=== PATIENT | female | born 1945 | race Caucasian/White ===

== ENCOUNTER → 2017-09-12 | Outpatient (CLI) | payer MEDICARE ==
[~2017-09-12] MED LIST: Blood pressure; CELEBREX200 MG PO; CIPRO 500MG TA500 MG PO; ENALAPRIL20 MG PO; EPA FISH OIL1000 MG PO; FLAGYL500 MG PO; HCTZ 25MG TAB25 MG PO; HCTZ 25MG25 MG PO; LOPRESSOR100 MG PO; LORTAB 5/500 501 TAB PO; MELATONIN3 M1 PO; MULTIPLE VITAMI1 TAB PO; NEXIUM20 MG PO; PRILOSEC 20MG20 MG PO; RHINOCORT0.032 MG/2 NS; TYLENOL 325MG325 MG PO; VERAPAMIL120 MG PO; XANAX 0.5MG0.5 MG PO; ZOFRAN 4MG T4 MG/TAB PO; ZOLPIDEM TART10 MG PO
== END ==
LOC: MC.RAD 08:32
DX: Z12.31 Encounter for screening mammogram for malignant neoplasm of breast (principal)

== ENCOUNTER → 2017-11-24 | Outpatient (CLI) | payer MEDICARE | LOC: COL.LAB 08:51 | DX: Z01.812 Encounter for preprocedural laboratory examination (principal) ==

== ENCOUNTER → 2018-08-03 | Outpatient (CLI) | payer MEDICARE | LOC: COL.RAD 14:04 | DX: S46.012A Strain of muscle(s) and tendon(s) of the rotator cuff of left shoulder, initial encounter (principal); S43.492A Other sprain of left shoulder joint, initial encounter; M24.812 Other specific joint derangements of left shoulder, not elsewhere classified; R79.89 Other specified abnormal findings of blood chemistry ==

== ENCOUNTER 2019-02-27 13:55 | Outpatient (RCR) | payer SELFPAY | END 2019-04-07 | disposition home or self-care (01) | LOC: COL.CR | DX: Z02.89 Encounter for other administrative examinations (principal) ==

== ENCOUNTER → 2019-03-05 | Outpatient (CLI) | payer OTHER | LOC: COL.RAD 10:30 | DX: G47.00 Insomnia, unspecified (principal); R68.82 Decreased libido; R53.82 Chronic fatigue, unspecified; E55.9 Vitamin D deficiency, unspecified; Z79.890 Hormone replacement therapy ==

== ENCOUNTER 2019-12-05 10:51 | Inpatient (IN) | payer MEDICARE ==
[~2019-12-05] VITALS: Wt 93.3 kg
[~2019-12-05 10:51] MED LIST changes: +MULTIPLE VITAMI1 CAP PO; -MULTIPLE VITAMI1 TAB PO
[2019-12-05 11:27] LABS: BASO # 0.1 (0.0-0.2); BASO % 0.7 % (0.0-2.0); EOS # 0.2 (0.0-0.7); EOS % 3.2 % (0-4.0); GRAN # 4.7 (1.4-6.5); GRAN % 62.8 % (42.2-75.2); HEMATOCRIT 41.7 % (37.0-47.0); LYMPH # 1.6 (1.2-3.4); LYMPH % 21.3 % (20.0-51.0); MEAN CELL VOLUME 99 fl (80.0-100.0); MEAN CORPUSCULAR HEMOGLOBIN 33 pg (27.0-31.0); MEAN CORPUSCULAR HGB CONC 34 g/dl (33.0-37.0); MEAN PLATELET VOLUME 10.1 fl (7.4-10.4); MONO # 0.9 (0.1-0.6); MONO % 11.6 % (1.7-9.3); PLATELET COUNT 193 K/mm3 (130-400); REDCELL DISTRIBUTION WIDTH-CV 12.4 % (11.5-14.5)
[2019-12-05] MEDS ORDERED: COZAAR100 MG PO (11:29)
[2019-12-05] MEDS ORDERED: LEXAPRO 10MG10 MG PO (11:30)
[2019-12-05 11:31] LABS: INR 0.9 (0.8-3.0); PROTHROMBIN TIME 10.5 SECONDS (9.7-12.8)
[2019-12-05] MEDS ORDERED: PROMETRIUM100 MG PO (11:31)
[2019-12-05 11:39] LABS: ALANINE AMINOTRANSFERASE 16 U/L (9-52); ALBUMIN 4.7 gm/dL (3.5-5.0); ALKALINE PHOSPHATASE 74 U/L (50-136); ANION GAP 11 mmol/L (7-16); AST,SGOT 26 U/L (15-37); BILIRUBIN,TOTAL 0.8 mg/dL (0.0-1.0); BLOOD UREA NITROGEN 25 mg/dL (7-17); CALCIUM 9.9 mg/dL (8.4-10.2); CARBON DIOXIDE 25 mmol/L (22-30); CHLORIDE 100 mmol/L (98-107); CREATININE, serum 0.94 (0.52-1.25); GLUCOSE 94 mg/dL (74-106); LIPASE 125 U/L (23-300); SODIUM 136 mmol/L (137-145); TOTAL PROTEIN 7.8 gm/dL (6.4-8.2)
[2019-12-05 11:51] LABS: TROPONIN-I < 0.012 ng/mL (0.000-0.035)
[2019-12-05] MEDS ORDERED: ASPIRIN 81M81 MG/TA2 PO (14:15)
[2019-12-05] MEDS ORDERED: ESTROGEN TP (14:24)
[2019-12-05 16:31] VITALS: BP 134/58; PULSE 73; TEMP 97.6
--- NOTE | 2019-12-05 16:47 | NUR ---
Dr. Donahue was consulted for patient chested pain and elevated Troponin
--- NOTE | 2019-12-05 19:26 | NUR ---
Patient was admitted from the ER. Patient is alert and oriented. Heart rhythm sound is normal at this time. Breath sound is clear. Patient denies any pain at this time. pedal and radial pulse is at 2+. No edema noted at this time. elevated Troponin 0.[address] KAN AND Dr. Edwards was informed. Dr Edwards order for Troponin but Dr KAN said it should be rechecked tomorrow and not tonight. Patient was started on Heparin drip of 10mL/hr. Patient was educated on the medication. HepXa drawn for 1200am 12/06. Patient home meds was taken home by . Patient is getting a heart cath tomorrow.
[2019-12-05 20:00] VITALS: BP 132/42; PULSE 64; TEMP 97.8
--- NOTE | 2019-12-05 21:13 | NUR ---
PT IN BED JOKING WITH ME AND OTHER NURSE PRESENT. PT SEEMED PLEASANT AND ORIENTED TO WHAT WAS HAPPENING. PT AWARE OF PROCEDURE IN THE MORNING. PT HAD TABLE AT BEDSIDE AND CALL LIGHT WITHIN REACH. PT SAYS PAIN 5/10 IN BACK. PT DENIES ANY OTHER NEEDS AT THIS TIME. AWARE NPO AFTER MIDNIGHT.
[2019-12-06] VITALS (291 sets, daily range): BP systolic 109–158; BP diastolic 39–79; PULSE 58–76; TEMP 97.5–98.7; O2SAT 60–100
--- NOTE | 2019-12-06 05:07 | NUR ---
pt awake during times i would come do vitals. stating she cannot get much sleep. states back pain is low but comes and goes. npo at midnight for heart cath. hepxa within therapeutic level, recheck at 0600. heparin drip still at 10mls/hr. bringing back meds to have pharmacy go over and take. bed in low position, call light and table at bedside. no other needs at this time.
[2019-12-06 06:53] LABS: BASO % 0.5 % (0.0-2.0); EOS # 0.2 (0.0-0.7); EOS % 3.5 % (0-4.0); GRAN # 3.6 (1.4-6.5); GRAN % 63.3 % (42.2-75.2); HEMOGLOBIN 12.9 g/dl (12.5-16.0); LYMPH # 1.2 (1.2-3.4); LYMPH % 21.4 % (20.0-51.0); MEAN CELL VOLUME 102 fl (80.0-100.0); MEAN CORPUSCULAR HEMOGLOBIN 33 pg (27.0-31.0); MEAN CORPUSCULAR HGB CONC 32 g/dl (33.0-37.0); MEAN PLATELET VOLUME 10.3 fl (7.4-10.4); MONO # 0.6 (0.1-0.6); PLATELET COUNT 159 K/mm3 (130-400); RED BLOOD COUNT 3.91 M/mm3 (4.10-5.30); REDCELL DISTRIBUTION WIDTH-CV 12.6 % (11.5-14.5)
[2019-12-06 07:08] LABS: CALCIUM 9.6 mg/dL (8.4-10.2); CHOLESTEROL RISK RATIO 3.7; CREATININE, serum 0.82 (0.52-1.25); POTASSIUM 3.7 mmol/L (3.4-5.0)
[2019-12-06 07:21] LABS: TROPONIN-I 0.072 ng/mL (0.000-0.035)
--- NOTE | 2019-12-06 07:26 | NUR ---
HEPARIN XA OBTAINED THIS AM @ 0600 RESULTED IN GOAL RANGE. NO CHANGE TO INFUSION RATE. PER PROTOCOL WILL RECHECK HEPARIN XA 12/07/19 IN AM.
--- NOTE | 2019-12-06 11:55 | NUR ---
Duty Engineer RNs x 2. On [facility] preparing patient for Heart Cath. Patient down to bilingual trainer accompanied by Duty Engineer nurses. New IV site obtained in Right lower forearm without complications. called by patient en route to hospital at this time.
--- NOTE | 2019-12-06 12:12 | NUR ---
SEE MERGE FOR MEDICATION ADMINISTRATION AND INRA/POST PROCEDURE SEDATION ASSESSMENTS.
--- NOTE | 2019-12-06 14:30 | NUR ---
PATIENT ARRIVES TO ROOM FROM WOODWORKING SHOP LABORER. SHEATH IN PLACE IN RIGHT GROIN. TR BAND IN PLACE TO RIGHT WRIST. BOTH SITES ASSESSED. VS WNL. WILL CONTINUE TO MONITOR.
--- NOTE | 2019-12-06 15:55 | NUR ---
GERIATRIC SOCIAL WORK PROFESSOR IN ROOM. SHEATH PULLED AT 1535. THEY DRESS THE SITE. GROIN ASSESSED BY MYSELF AT THIS TIME.
--- NOTE | 2019-12-06 16:05 | NUR ---
GROIN SITE ASSESSED. HEMATOMA NOTED. PRESSURE HELD. SATELLITE DISH INSTALLER CALLED TO COME HELP MANAGE GROIN.
--- NOTE | 2019-12-06 16:30 | NUR ---
HEMATOMA NOTED TO RIGHT GROIN. GREENS KEEPER CALLED TO COME BACK AND HELP MANAGE GROIN. PATIENT C/O NAUSEA AND HYPOTENSION SEEN ON MONITOR. FLUIDS WIDE OPEN. DR. HARRINGTON CALLED FOR ORDERS. ORDERS ARE TO GIVE FLUID BOLUS FROM FLUIDS THAT ARE CURRENTLY HANGING, GIVE ZOFRAN FOR NAUSEA AND MONITOR. NO NEW BRADYCARDIA SEEN ON MONITOR.
--- NOTE | 2019-12-06 16:45 | NUR ---
PATIENT FEELING MUCH BETTER. BP RETURNS BACK TO NORMAL FOR THIS PATIENT. NAUSEA SUBSIDED. RIGHT GROIN STABLE. PULSES PRESENT. DR. HARRINGTON HAS BEEN TO ROOM TO SEE AND EXAMINE PATIENT. NO NEW ORDERS RECEIVED AT THIS TIME.
--- NOTE | 2019-12-06 19:05 | NUR ---
Received report from SUZIE Flores. Patient resting quietly in bed at this time. TR band completely deflated but remains in place over RR access site. Scant drainage noted. RF site is clean, dry, and intact, however, bruising is evident underneith dressing. Site remains soft and without hematoma formation. Pedal and radial pulses palpable. Will continue to monitor.
--- NOTE | 2019-12-06 19:06 | NUR ---
REPORT GIVEN TO SUZIE WHIPPLE. PATIENT LYING IN BED AT THIS TIME. STILL ON FLAT TIME UNTIL 2029.
--- NOTE | 2019-12-06 21:08 | NUR ---
Patient's flat time up at 2029. RR site clean, soft, and without hematoma formation at this time; TR band removed. Patient's RF site bruised, but is soft and without hematoma formation. Dressing is clean, dry, and intact. Patient progressed to sitting up in bed to sitting on edge of bed prior to ambulation. Patient's jiménez removed at 2044 per her request. Patient ambulated to sink to brush teeth and freshen up. At this time, approximately 2049, a ping-pong ball-sized hematoma was noted at patient's RR site. Pressure applied and hematoma massaged until soft. Pulses remained palpable. TR band and splint reapplied with 10mL of air. Reinforced teaching that patient not use the right arm to sit up in bed. Will continue to monitor.
--- NOTE | 2019-12-06 21:09 | NUR ---
Hematoma at RR site resolved. TR band remains in place with 10mL at this time.
[2019-12-07] VITALS: BP 143/61; PULSE 64; TEMP 97.9; O2SAT 83
[2019-12-07 00:01] VITALS: O2SAT 77
[2019-12-07 01:12] VITALS: O2SAT 57
[2019-12-07 04:00] VITALS: BP 136/61; PULSE 68; TEMP 97.8
--- NOTE | 2019-12-07 04:15 | NUR ---
Staff at bedside at approximately 0330 for routine cath check. Patient resting quietly in bed, vitals within normal limits. RR and RF sites remain soft and without hematoma formation. No drainage noted at RF site, however, scant drainage noted on patient's RR site. Bruising noted at both sites. Patient denies further needs at this time. At 0350, telemetry filing or registry clerk notified staff that patient's leads were off. Upon entering patient's room, patient was found to be ambulating in room. She had removed all monitoring equipment, including splint and TR band, and had changed her gown. When staff attempted to reapply telemetry patches and leads, patient quickly became agitated, stating, "I'm leaving today, I don't know why all this is necessary." Patient informed leads were necessary to monitor changes in her heart rate/rhythm following a cardiac procedure. Patient became increasingly agitated, continuing to state monitoring was not needed since she would be leaving this morning. Staff offered a portable telemetry box, in addition to removing BP cuff and oximeter with the exception of routine vital checks; this placated the patient. Patient was also offered a recliner and a cup of coffee, which she agreed to. Patient appears calmer and denies any discomfort or further needs.
--- NOTE | 2019-12-07 07:42 | NUR ---
Report given to SUZIE Song.
[2019-12-07 08:00] VITALS: BP 139/58; PULSE 80; TEMP 98
--- NOTE | 2019-12-07 08:00 | NUR ---
Shift assessment complete at this time. Plan of care reviewed at bedside with patient. Additional time taken to address any other needs or concerns. Vitals stable at this time. Pt denies pain or any other discomforts. R radial et R femoral cath sites with bruising, no drainage or hematoma. Bed in low position, call light within reach, will continue to monitor.
--- NOTE | 2019-12-07 10:16 | NUR ---
Patients was present. Visited, and provided spiritual care.
[2019-12-07] MEDS ORDERED: PLAVIX 75MG TAB75 MG PO (11:15)
[2019-12-07] MEDS ORDERED: IMDUR 30MG30 MG/TAB PO (11:16)
[2019-12-07] MEDS ORDERED: LOPRESSOR 225 MG/TAB PO (11:16)
[2019-12-07] MEDS ORDERED: NITROSTAT0.4 MG/TAB SL (11:16)
[2019-12-07] MEDS ORDERED: ASPIRIN 81M81 MG/TA2 PO (11:17)
[2019-12-07] MEDS ORDERED: LIPITOR 80MG80 MG PO (11:28)
--- NOTE | 2019-12-07 11:55 | NUR ---
Pt discharged to home by private vehicle at this time. Discharge education provided to patient et spuse and additional time was taken to address all questions and concerns.
== END 2019-12-07 11:55 | disposition home or self-care (01) | DRG 247 ==
LOC: COL.ER 10:51 → MEDICAL 12:11 → ICU 12-06 13:34
PROVIDERS: Emergency Medicine; Physician Assistant; ADMIT Student in an Organized Health Care Education/Training Program
PROC: 027034Z Dilation of Coronary Artery, One Artery with Drug-eluting Intraluminal Device, Percutaneous Approach (ICD-10-PCS; principal; 2019-12-06)
PROC: 02703ZZ Dilation of Coronary Artery, One Artery, Percutaneous Approach (ICD-10-PCS; 2019-12-06)
PROC: 4A023N7 Measurement of Cardiac Sampling and Pressure, Left Heart, Percutaneous Approach (ICD-10-PCS; 2019-12-06)
PROC: B2111ZZ Fluoroscopy of Multiple Coronary Arteries using Low Osmolar Contrast (ICD-10-PCS; 2019-12-06)
PROC: B2151ZZ Fluoroscopy of Left Heart using Low Osmolar Contrast (ICD-10-PCS; 2019-12-06)
DX: I21.4 Non-ST elevation (NSTEMI) myocardial infarction (principal); I20.0 Unstable angina; I48.0 Paroxysmal atrial fibrillation; F41.9 Anxiety disorder, unspecified; K21.9 Gastro-esophageal reflux disease without esophagitis; G47.00 Insomnia, unspecified; I10 Essential (primary) hypertension; Z96.653 Presence of artificial knee joint, bilateral; Z96.642 Presence of left artificial hip joint; Z87.891 Personal history of nicotine dependence; Z95.5 Presence of coronary angioplasty implant and graft; Z88.1 Allergy status to other antibiotic agents
CPT/HCPCS: 99223-AI; 99233-AI; 99239; C1725; C1769; C1874; C1887; C1894; C9600; G0378; J1644; J2250; J2405; J3010; J7030

== ENCOUNTER 2020-02-05 09:26 | Inpatient (IN) | payer MEDICARE ==
[~2020-02-05] VITALS: Ht 172.7 cm; Wt 93.8 kg
[~2020-02-05 09:26] MED LIST changes: +ASPIRIN 81M81 MG/TA2 PO; +COZAAR100 MG PO; +ESTROGEN TP; +IMDUR 30MG30 MG/TAB PO; +LEXAPRO 10MG10 MG PO; +LIPITOR 80MG80 MG PO; +LOPRESSOR 225 MG/TAB PO; +NITROSTAT0.4 MG/TAB SL; +PLAVIX 75MG TAB75 MG PO; +PROMETRIUM100 MG PO
[2020-02-05 09:58] LABS: INR 0.9 (0.8-3.0); PROTHROMBIN TIME 10.9 SECONDS (9.7-12.8)
[2020-02-05 10:01] LABS: BASO % 0.6 % (0.0-2.0); EOS # 0.3 (0.0-0.7); EOS % 3.9 % (0-4.0); GRAN # 4.3 (1.4-6.5); GRAN % 64.1 % (42.2-75.2); HEMATOCRIT 39.5 % (37.0-47.0); HEMOGLOBIN 13.3 g/dl (12.5-16.0); LYMPH # 1.2 (1.2-3.4); LYMPH % 18.6 % (20.0-51.0); MEAN CELL VOLUME 99 fl (80.0-100.0); MEAN CORPUSCULAR HEMOGLOBIN 33 pg (27.0-31.0); MEAN CORPUSCULAR HGB CONC 34 g/dl (33.0-37.0); MEAN PLATELET VOLUME 9.9 fl (7.4-10.4); MONO # 0.8 (0.1-0.6); MONO % 12.3 % (1.7-9.3); PLATELET COUNT 180 K/mm3 (130-400); REDCELL DISTRIBUTION WIDTH-CV 12.4 % (11.5-14.5)
[2020-02-05] MEDS ORDERED: TYLENOL 500MG500 MG PO (10:04)
[2020-02-05 10:05] LABS: ALBUMIN 4.5 gm/dL (3.5-5.0); BILIRUBIN,TOTAL 0.7 mg/dL (0.0-1.0); CALCIUM 9.5 mg/dL (8.4-10.2); CREATININE, serum 0.96 (0.52-1.25); POTASSIUM 3.6 mmol/L (3.4-5.0); TOTAL PROTEIN 7.4 gm/dL (6.4-8.2)
[2020-02-05 10:21] LABS: TROPONIN-I 0.036 ng/mL (0.000-0.035)
--- NOTE | 2020-02-05 12:30 | NUR ---
PT TO ROOM IMCU 13. PT RESTING IN BED. HEPARIN DRIP @ 10 MLS/HR PER ORDERS. NS @ 125MLS HR. TELE PLACED. VSS, PT DENIES PAIN AT THIS TIME. DR. PA IN TO SEE PATIENT. REPORT FROM MARIA D LARSEN ED.
[2020-02-05 12:47] VITALS: BP 130/80; PULSE 70; TEMP 97.7
--- NOTE | 2020-02-05 17:25 | NUR ---
notified Dr. Spain of Troponin level. no new orders.
--- NOTE | 2020-02-05 17:30 | NUR ---
HEPXA LEVEL 0.56 DECREASED 1ML/HR PER PROTOCOL NEXT DRAW 2330.
[2020-02-05 18:00] VITALS: BP 146/65; PULSE 58; TEMP 97.8
--- NOTE | 2020-02-05 19:12 | NUR ---
report to Soha LARSEN.
[2020-02-06] VITALS (10 sets, daily range): BP systolic 119–146; BP diastolic 48–71; PULSE 61–86; TEMP 97.9–98.6
[2020-02-06 05:21] LABS: CHOLESTEROL RISK RATIO 2.9; MAGNESIUM 1.2 mg/dL (1.6-2.3)
[2020-02-06 05:41] LABS: TROPONIN-I 0.131 ng/mL (0.000-0.035)
--- NOTE | 2020-02-06 07:34 | NUR ---
0543 - TROPONIN OF 0.131 REPORTED TO SKYLAR LAMA. NO NEW ORDERS GIVEN AT THIS TIME.
--- NOTE | 2020-02-06 07:35 | NUR ---
REPORT GIVEN TO SUZIE GURROLA.
--- NOTE | 2020-02-06 08:21 | NUR ---
Pt assessment complete. Pt is resting in bed upon entry, she is A/O x4. Her breathing is even and unlabored on RA. Pt denies SOB. No chest pain/palpitations at this time. Pt denies other pain. No N/V. Pt asking to eat, POC discussed with her. Heparin infusing per protocol. No needs at this time. Call light within reach. Will continue to monitor.
--- NOTE | 2020-02-06 08:55 | NUR ---
Pt left for lexiscan at this time.
[2020-02-06] MEDS ORDERED: COREG12.5 MG PO (14:04)
--- NOTE | 2020-02-06 14:18 | NUR ---
CAREY met with the patient to discuss discharge plan. The patient lives in [place] with her , Ranjan (ph#[phone]). She reports independence with ADLs and does not have any DME. The patient's PCP is Dr. Lowell House and she receives her medications at [facility]. She reports no difficulties obtaining her meds. The patient does not have advanced directives in EMR, but she reports that she does have them completed. She states that her is her DPOA-HC. The patient plans to return back home with her upon discharge. No additional needs at this time.
--- NOTE | 2020-02-06 16:45 | NUR ---
Discharge instructions and paperwork reviewed with patient. All questions answered at this time. Pt advised to f/u if any continuation of chest pain, dizziness etc. Bilateral hand IV's dc'd catheter tips intact. Pt wheeled out of facility at this time.
== END 2020-02-06 16:45 | disposition home or self-care (01) | DRG 282 ==
LOC: COL.ER 09:26 → EU 10:25
PROVIDERS: Emergency Medicine; ADMIT Internal Medicine
DX: I16.0 Hypertensive urgency (principal); I21.4 Non-ST elevation (NSTEMI) myocardial infarction; I25.10 Atherosclerotic heart disease of native coronary artery without angina pectoris; I10 Essential (primary) hypertension; K21.9 Gastro-esophageal reflux disease without esophagitis; F41.9 Anxiety disorder, unspecified; I48.0 Paroxysmal atrial fibrillation; Z96.653 Presence of artificial knee joint, bilateral; Z79.82 Long term (current) use of aspirin; Z87.891 Personal history of nicotine dependence
CPT/HCPCS: 99223-AI; 99239; A9500; C9113; J1644; J2405; J2785; J3475; J7030

== ENCOUNTER 2020-05-20 15:49 | Outpatient (RCR) | payer MEDICARE ==
[~2020-05-20 15:49] MED LIST changes: +COREG12.5 MG PO; +ESTROGEL0.06% TOP; +TYLENOL 500MG500 MG PO
== END 2020-05-29 06:43 | disposition home or self-care (01) ==
LOC: COL.CR 15:49
DX: Z02.89 Encounter for other administrative examinations (principal)

== ENCOUNTER 2020-12-04 13:51 | Outpatient (CLI) | payer MEDICARE ==
[~2020-12-04] VITALS: Ht 172.7 cm; Wt 95.3 kg
[2020-12-04 14:50] VITALS: BP 104/63; PULSE 77
[2020-12-04 15:50] VITALS: BP 122/72; PULSE 79
[2020-12-04 16:50] VITALS: BP 117/75; PULSE 82
[2020-12-04 17:50] VITALS: BP 115/68; PULSE 75
[2020-12-04] MEDS ORDERED: IMDUR 30MG30 MG/TAB PO (17:54)
[2020-12-04] MEDS ORDERED: VITAMIND3 5000 PO (17:56)
[2020-12-04 18:50] VITALS: BP 136/71; PULSE 87
[2020-12-04 20:00] VITALS: BP 137/76; PULSE 84
== END 2020-12-04 20:41 | disposition home or self-care (01) ==
LOC: EUO 13:51
DX: E83.42 Hypomagnesemia (principal)
CPT/HCPCS: J3475

== ENCOUNTER → 2021-02-22 | Outpatient (CLI) | payer MEDICARE ==
[~2021-02-22] MED LIST changes: +VITAMIND3 5000 PO
== END ==
LOC: MC.RAD 10:45
DX: Z12.31 Encounter for screening mammogram for malignant neoplasm of breast (principal)

== ENCOUNTER → 2021-05-14 | Outpatient (CLI) | payer MEDICARE | LOC: COL.VAS 10:23 | DX: R60.0 Localized edema (principal) ==

== ENCOUNTER 2022-05-21 23:39 | Inpatient (IN) | payer MEDICARE ==
[~2022-05-21] VITALS: Ht 172.7 cm; Wt 91.3 kg
[2022-05-22] VITALS (263 sets, daily range): BP systolic 134–201; BP diastolic 44–90; PULSE 72–89; TEMP 97.9–98; O2SAT 79–100
[2022-05-22] LABS: BASO % 0.5 % (0.0-2.0); EOS # 0.2 K/mm3 (0.0-0.7); EOS % 2.7 % (0.0-4.0); GRAN # 2.6 K/mm3 (1.4-6.5); GRAN % 47.8 % (42.2-75.2); HEMATOCRIT 38.6 % (37.0-47.0); HEMOGLOBIN 12.7 g/dl (12.5-16.0); LYMPH # 1.9 K/mm3 (1.2-3.4); LYMPH % 34.4 % (20.0-51.0); MEAN CELL VOLUME 105 fl (80.0-100.0); MEAN CORPUSCULAR HEMOGLOBIN 34 pg (27-31); MEAN CORPUSCULAR HGB CONC 33 g/dl (33.0-37.0); MEAN PLATELET VOLUME 9.7 fl (7.4-10.4); MONO # 0.8 K/mm3 (0.1-0.6); MONO % 14.4 % (1.7-9.3); PLATELET COUNT 191 K/mm3 (130-400); RED BLOOD COUNT 3.69 M/mm3 (4.10-5.30); REDCELL DISTRIBUTION WIDTH-CV 12.1 % (11.5-14.5)
[2022-05-22 00:14] LABS: ALBUMIN 3.5 gm/dL (3.4-4.8); ANION GAP 16 mmol/L (7-16); BLOOD UREA NITROGEN 18 mg/dL (10-20); CALCIUM 9.1 mg/dL (8.4-10.2); CARBON DIOXIDE 20 mmol/L (23-31); CHLORIDE 105 mmol/L (98-107); CREATININE, serum 1.18 mg/dL (0.57-1.11); GLUCOSE 94 mg/dL (70-99); PHOSPHOROUS 2.6 mg/dL (2.3-4.7); POTASSIUM 3.3 mmol/L (3.5-4.5); SODIUM 141 mmol/L (136-145)
[2022-05-22 00:23] LABS: TROPONIN-I < 0.010 ng/mL (0.00-0.033)
[2022-05-22 00:28] LABS: COLLECTION METHOD CLEAN CATCH
[2022-05-22 00:31] LABS: URINE APPEARANCE Clear (CLEAR/HAZY); URINE BLOOD Negative (NEGATIVE); URINE COLOR Yellow (YELLOW); URINE GLUCOSE Negative (NEGATIVE); URINE KETONE Negative (NEGATIVE); URINE NITRATE Negative (NEGATIVE); URINE PROTEIN(semi-quant) Negative (NEGATIVE); URINE UROBILINOGEN 0.2 E.U/dL (0.2-1.0)
[2022-05-22 00:34] LABS: MUCOUS Present (NOT PRESENT); SQUAMOUS EPITHELIAL 0-2 /hpf (0-10); URINE BACTERIA Rare /hpf (NONE SEEN); URINE RBC 0-2 /hpf (0-2)
[2022-05-22] MEDS ORDERED: NORVASC 10MG10 MG PO (03:24)
[2022-05-22] MEDS ORDERED: XANAX 0.5MG0.5 MG PO ×2 (03:24→05:23)
[2022-05-22] MEDS ORDERED: PEPCID 20MG TAB20 MG PO (03:26)
[2022-05-22] MEDS ORDERED: LASIX 20MG TABL20 MG PO ×2 (03:28→05:22)
[2022-05-22] MEDS ORDERED: MAG-OX 400400 MG/TAB PO (03:28)
[2022-05-22] MEDS ORDERED: PRAVACHOL10 MG PO ×2 (03:30→05:22)
[2022-05-22] MEDS ORDERED: ASPRUZYO SPRIN500 MG PO (03:32)
[2022-05-22] MEDS ORDERED: COZAAR100 MG PO (05:22)
[2022-05-22] MEDS ORDERED: APRESOLINE50 MG PO (05:22)
[2022-05-22] MEDS ORDERED: LEXAPRO 10MG10 MG PO (05:24)
[2022-05-22] MEDS ORDERED: TOPROL XL 25MG25 MG PO (05:24)
[2022-05-22] MEDS ORDERED: NITROSTAT0.4 MG/TAB SL (05:24)
[2022-05-22] MEDS ORDERED: RANEXA 500MG T500 MG PO (05:24)
--- NOTE | 2022-05-22 05:57 | NUR ---
PATIENT REPORTED HAVING CHEST PAIN AGAIN AFTER PLACED ON BED DENNIS AND TRYING TO VOID
[2022-05-22 06:15] LABS: PROTHROMBIN TIME 11.2 SECONDS (9.7-12.8)
--- NOTE | 2022-05-22 06:43 | NUR ---
PATIENT ARRIVED TO FLOOR APPROX 0420. ATTEMPTING TO ASK ADMISSION QUESTIONS AND PERFORM ASSESSMENT AND PATIENT APPEARS ANXIOUS, SHORT OF BREATH, REPORTING CHEST PAIN IS BACK WITH RADIATING DOWN LEFT ARM AGAIN. PATIENT GIVEN PRN NITRO APPROX 0500 AND REPORTED CHEST PAIN BETTER. PROVIDER CALLED AND ORDERS GIVEN FOR ZOFRAN PATIENT REPORTING NAUSEA WELL. PATIENT REPORTED NAUSEA BETTER. PATIENT REPORTED CHEST PAIN AGAIN APPROX 0550 WHILE TRYING TO USE THE BEDPAN. RECEIVED ORDERS TO TRANSFER PATIENT TO ICU. REPORT GIVEN TO VANDANA IN ICU AND CALLED AND UPDATED.
[2022-05-22 07:05] LABS: CHOLESTEROL RISK RATIO 3.7
--- NOTE | 2022-05-22 12:33 | NUR ---
Acupressurist met with patient and spouse Ranjan at patient bedside. Patient is alert and oriented, and she gives consent to this social security benefits interviewer to speak to her with spouse present. Patient is planning to be transferred to [facility] in [place] for 4th heart stint to be placed. Patient states she is grateful this time that her spouse/family are allowed at her bedside as the last 3 stints placed during Covid, and there were visitor restrictions. Patient lives in a large two-story home (main floor and finished basement) with minimum of 6-steps to enter. Patient is able to reside on the main floor where her bedroom and bathroom are located, as needed. Both patient and spouse inform of numerous family/friends who can assist patient, who is normally very independent in ADLs/IADLs, in completing these while she is recovering at home, their preference. Patient is open to rehabilitation in-home or home health, but finds the service somewhat invasive and prefer their privacy, as possible. Patient utilizes a walker ocassionally at home, as needed "There's alot of things in our home." She sees Dr. Lowell House for primary care and obtains her medications at [facility] without any issue. Spouse is familiar with [facility] in [place], and he has no questions about getting there and no concerns about affording a hotel for a couple days during patient procedure and recovery. Patient utilizes an inhaler ocassionally, as well, but no other medical equipment. A daughter and her spouse live nearby. Patient does wish to complete DPOA-HC nominating her spouse Ranjan as primary agent and secondary agent her son Keith who lives in [place]. Paperwork witnessed by this Acupressurist and Sandra LARSEN, placed to be scanned into patient chart and copies given to patient and spouse. Both express no other questions/concerns at this time; they are ready for patient transfer to [facility]. *Discharge plan: Patient to transfer to [facility] in [place] for heart procedure*
== END 2022-05-22 13:08 | disposition short-term general hospital (02) | DRG 281 ==
LOC: COL.ER 23:39 → SURG 05-22 02:39 → ICU 05-22 06:22
PROVIDERS: Emergency Medicine; Nurse Practitioner Family; ADMIT Student in an Organized Health Care Education/Training Program
DX: I21.4 Non-ST elevation (NSTEMI) myocardial infarction (principal); E87.2 Acidosis; N17.9 Acute kidney failure, unspecified; Z96.653 Presence of artificial knee joint, bilateral; Z96.652 Presence of left artificial knee joint; J45.909 Unspecified asthma, uncomplicated; K21.9 Gastro-esophageal reflux disease without esophagitis; E78.5 Hyperlipidemia, unspecified; F41.9 Anxiety disorder, unspecified; E87.6 Hypokalemia; I25.110 Atherosclerotic heart disease of native coronary artery with unstable angina pectoris; I10 Essential (primary) hypertension; Z90.89 Acquired absence of other organs; Z88.1 Allergy status to other antibiotic agents; Z88.8 Allergy status to other drugs, medicaments and biological substances; Z91.018 Allergy to other foods; Z79.01 Long term (current) use of anticoagulants; Z87.891 Personal history of nicotine dependence; Z79.82 Long term (current) use of aspirin; Z95.5 Presence of coronary angioplasty implant and graft; Z85.828 Personal history of other malignant neoplasm of skin
CPT/HCPCS: J1644; J2270; J2405; J7030; Q9967

== ENCOUNTER 2022-05-24 13:39 | Emergency (ER) | payer MEDICARE ==
[~2022-05-24] VITALS: Ht 172.7 cm; Wt 86.4 kg
[~2022-05-24 13:39] MED LIST changes: +APRESOLINE50 MG PO; +ASPRUZYO SPRIN500 MG PO; +LASIX 20MG TABL20 MG PO; +MAG-OX 400400 MG/TAB PO; +NORVASC 10MG10 MG PO; +PEPCID 20MG TAB20 MG PO; +PRAVACHOL10 MG PO; +RANEXA 500MG T500 MG PO; +TOPROL XL 25MG25 MG PO
[2022-05-24 14:42] LABS: BASO % 0.3 % (0.0-2.0); EOS # 0.1 K/mm3 (0.0-0.7); EOS % 1.1 % (0.0-4.0); GRAN # 5.8 K/mm3 (1.4-6.5); GRAN % 72.7 % (42.2-75.2); HEMOGLOBIN 12.3 g/dl (12.5-16.0); LYMPH # 1.2 K/mm3 (1.2-3.4); LYMPH % 14.5 % (20.0-51.0); MEAN CELL VOLUME 102 fl (80.0-100.0); MEAN CORPUSCULAR HEMOGLOBIN 34 pg (27-31); MEAN CORPUSCULAR HGB CONC 33 g/dl (33.0-37.0); MEAN PLATELET VOLUME 10.1 fl (7.4-10.4); MONO # 0.9 K/mm3 (0.1-0.6); MONO % 11.1 % (1.7-9.3); PLATELET COUNT 161 K/mm3 (130-400); RED BLOOD COUNT 3.63 M/mm3 (4.10-5.30); REDCELL DISTRIBUTION WIDTH-CV 11.9 % (11.5-14.5)
[2022-05-24 14:58] LABS: ALBUMIN 3.9 gm/dL (3.4-4.8); BILIRUBIN,TOTAL 0.6 mg/dL (0.2-1.2); CALCIUM 9.8 mg/dL (8.4-10.2); CREATININE, serum 0.97 mg/dL (0.57-1.11); POTASSIUM 3.4 mmol/L (3.5-4.5); TOTAL PROTEIN 6.9 gm/dL (6.2-8.1)
[2022-05-24 15:04] LABS: PARTIAL THROMBOPLASTIN TIME 27.6 SECONDS (26.0-37.0)
[2022-05-24 15:12] LABS: TROPONIN-I 8.795 ng/mL (0.00-0.033)
[2022-05-24] MEDS ORDERED: LASIX 20MG TABL20 MG (15:15)
[2022-05-24 19:54] VITALS: BP 184/88; PULSE 79; TEMP 98.2
== END 2022-05-24 20:05 | disposition short-term general hospital (02) ==
LOC: COL.ER 13:39
PROVIDERS: Family Medicine
DX: I20.9 Angina pectoris, unspecified (principal); Z87.891 Personal history of nicotine dependence
CPT/HCPCS: J1644

== ENCOUNTER 2022-06-03 16:14 | Emergency (ER) | payer MEDICARE ==
[~2022-06-03] VITALS: Ht 172.7 cm; Wt 86.4 kg
[~2022-06-03 16:14] MED LIST changes: +LASIX 20MG TABL20 MG
[2022-06-03 16:17] VITALS: TEMP 97.8
[2022-06-03 16:32] LABS: HEMOGLOBIN 11.4 g/dl (12.5-16.0); MEAN CELL VOLUME 98 fl (80.0-100.0); MEAN CORPUSCULAR HEMOGLOBIN 34 pg (27-31); MEAN CORPUSCULAR HGB CONC 34 g/dl (33.0-37.0); PLATELET COUNT 512 K/mm3 (130-400)
[2022-06-03 16:33] LABS: HEMATOCRIT 33.4 % (37.0-47.0)
[2022-06-03 16:50] LABS: ALBUMIN 3.4 gm/dL (3.4-4.8); BILIRUBIN,TOTAL 0.6 mg/dL (0.2-1.2); C-REACTIVE PROTEIN 13.88 mg/dL (0.00-0.50); CALCIUM 9.6 mg/dL (8.4-10.2); CREATININE, serum 2.79 mg/dL (0.57-1.11); POTASSIUM 3.1 mmol/L (3.5-4.5)
[2022-06-03 17:24] LABS: BAND 15 % (0-10); EOSINOPHIL 1 % (0-4); LYMPHOCYTE 11 % (20.0-51.0); NEUTROPHILS 63 % (42.0-75.2)
[2022-06-03 17:25] LABS: PLATELET ESTIMATE INCREASED (NORMAL)
[2022-06-03 18:25] VITALS: BP 138/74; PULSE 62
== END 2022-06-03 18:28 | disposition short-term general hospital (02) ==
LOC: COL.ER 16:14
PROVIDERS: Family Medicine
DX: K56.609 Unspecified intestinal obstruction, unspecified as to partial versus complete obstruction (principal); I25.9 Chronic ischemic heart disease, unspecified; Z95.5 Presence of coronary angioplasty implant and graft
CPT/HCPCS: J2405; J2765; J7120

== ENCOUNTER → 2022-08-08 | Outpatient (RCR) | payer MEDICARE | END | disposition home or self-care (01) | LOC: COL.CR | DX: Z48.812 Encounter for surgical aftercare following surgery on the circulatory system (principal); Z95.1 Presence of aortocoronary bypass graft ==

== ENCOUNTER → 2024-04-09 | Outpatient (CLI) | payer MEDICARE ==
[~2024-04-09] MED LIST changes: +Iohexol 300 - 10 ML VIAL IV ONE; +Triamcinolone 40 MG/ML 1 ML VIAL IJ ONE
== END ==
LOC: COL.RAD 13:00
DX: M25.551 Pain in right hip (principal)
CPT/HCPCS: J0665; J3301; Q9967

== ENCOUNTER 2024-07-08 22:49 | Inpatient (IN) | payer MEDICARE ==
[~2024-07-08] VITALS: Ht 167.6 cm; Wt 88.8 kg
[~2024-07-08 22:49] MED LIST changes: -Iohexol 300 - 10 ML VIAL IV ONE; -LASIX 20MG TABL20 MG; -Triamcinolone 40 MG/ML 1 ML VIAL IJ ONE
[2024-07-09] VITALS (15 sets, daily range): BP systolic 133–176; BP diastolic 57–91; PULSE 71–101; TEMP 97.5–98.4
[2024-07-09] MEDS ORDERED: REPATHA SU140 MG/1 M SQ (00:59)
[2024-07-09] MEDS ORDERED: fentaNYL 50 MCG/ML 2 ML VIAL IV PRN (01:00)
[2024-07-09] MEDS ORDERED: EYE DROP ADVANC15 ML OP (01:02)
[2024-07-09] MEDS ORDERED: VENTOLIN0.09 MG IH (01:04)
[2024-07-09] MEDS ORDERED: Ondansetron 4 MG/2 ML VIAL IV PRN (01:15)
[2024-07-09] MEDS ORDERED: D5 1/2 NS 1,000 ML IV SCH (01:15)
[2024-07-09] MEDS ORDERED: Acetaminophen 500 MG TAB PO PRN (01:15)
[2024-07-09] MEDS ORDERED: Albuterol 0.083% Neb Soln 2.5 MG/3 ML UD IH PRN (01:15)
[2024-07-09] MEDS ORDERED: XANAX 0.5MG0.5 MG PO (02:14)
[2024-07-09 02:18] LABS: BASO % 0.4 % (0.0-2.0); EOS # 0.1 K/mm3 (0.0-0.7); EOS % 0.9 % (0.0-4.0); GRAN # 6.9 K/mm3 (1.4-6.5); GRAN % 71.6 % (42.2-75.2); HEMATOCRIT 38.3 % (37.0-47.0); LYMPH # 1.6 K/mm3 (1.2-3.4); LYMPH % 16.3 % (20.0-51.0); MEAN CELL VOLUME 95 fl (80.0-100.0); MEAN CORPUSCULAR HEMOGLOBIN 32 pg (27-31); MEAN CORPUSCULAR HGB CONC 34 g/dl (33.0-37.0); MEAN PLATELET VOLUME 9.7 fl (7.4-10.4); MONO % 10.5 % (1.7-9.3); PLATELET COUNT 222 K/mm3 (130-400); RED BLOOD COUNT 4.03 M/mm3 (4.10-5.30); REDCELL DISTRIBUTION WIDTH-CV 11.7 % (11.5-14.5)
[2024-07-09 02:24] LABS: PROTHROMBIN TIME 11.2 SECONDS (9.7-12.8)
[2024-07-09 02:28] LABS: ALBUMIN 3.6 g/dL (3.4-4.8); BILIRUBIN,TOTAL 0.4 mg/dL (0.2-1.2); CALCIUM 9.4 mg/dL (8.4-10.2); CREATININE, serum 0.79 mg/dL (0.57-1.11); POTASSIUM 3.3 mEq/L (3.5-4.5); TOTAL PROTEIN 5.9 g/dl (6.2-8.1)
--- NOTE | 2024-07-09 02:31 | NUR ---
PATIENT ADMITTED TO ROOM 329 BROUGHT UP BY ED-RN. PATIENT C/O 05/18 RT HIP PAIN. VS ARE BP 157/88, PULSE 87, TEMP 98.4, O2 SAT 985 ON RA, RR 18. 25 MCG IV FENTANYL ADMINISTERED FOR PAIN. REPEATED EDUCATION PROVIDED TO PATIENT ABOUT NOT CROSSING LEGS THIS WILL COMPLICATE HIP FRACTURE AND NO BENDING OVER. PATIENT INSISTS ON SLEEPING ON UNAFFECTED SIDE LATERALLY. PILLOWS PLACED BETWEEN KNEES AND UNDER HIP. OFFERRED PATIENT TIPTON'S TRACTION AND SHE REFUSED. DISTAL PULSES GOOD, SENSATION GOOD AND COLOE GOOD IN RLLE. FALL PRECAUTIONS IN PLACE. CALL LIGHTWITHIN REACH.
[2024-07-09] MEDS ORDERED: *Potassium Replacement Protocol MC SCH (03:30)
[2024-07-09] MEDS ORDERED: Potassium Chloride 100 ML IV SCH (03:30)
--- NOTE | 2024-07-09 03:55 | NUR ---
CALL PLACED TO [facility]ITALIST[facility]. UNABLE TO PLACE CATHETER AFETER MULTIPLE ATTEMPTS BY THIS NURSE AND CHARGE. HOSPITALIST TO ATTEMPT AT BEDSIDE NOW.
--- NOTE | 2024-07-09 04:57 | NUR ---
CALL PLACED TO [facility]PITAL[facility]. PATIENT CONTINUES TO C/0 8/10 RT HIP PAIN. TORB TO GIVE 25 MCG IV FENTANLY A LITTLE EARLY (1HR). PATIENT ALSO HYPERTENSIVE AT 174 SYSTOLIC. TORB TO RECHECK BP AFTER ADMINISTERATION OF FENTANYL GIVEN.
[2024-07-09 05:08] LABS: COLLECTION METHOD CATHETER
[2024-07-09] MEDS ORDERED: Magnesium Sulfate 4% 50 ML IV ONE (05:15)
--- NOTE | 2024-07-09 05:17 | NUR ---
CALL PLACED TO [facility]. PATIENT MAG 1.2. TORB TO ADMINISTER 2GM MAG IV GIVEN.PER PROTOCOL TELE ORDERS PLACED.
[2024-07-09 05:28] LABS: URINE APPEARANCE CLEAR (CLEAR/HAZY); URINE BLOOD NEGATIVE (NEGATIVE); URINE COLOR YELLOW (YELLOW); URINE GLUCOSE NEGATIVE (NEGATIVE); URINE KETONE TRACE (NEGATIVE); URINE NITRATE NEGATIVE (NEGATIVE); URINE PROTEIN(semi-quant) NEGATIVE (NEGATIVE); URINE UROBILINOGEN 0.2 E.U/dL (0.2-1.0)
--- NOTE | 2024-07-09 05:34 | NUR ---
BP RECHECK SYSTOLIC 168 IMPROVING FROM 176
--- NOTE | 2024-07-09 05:48 | NUR ---
CALL PLACED TO PHARMACY TO [facility]. INQUIRED ABOUT COMPATIBILITY OF POTASSIUM CHLORIDE IV, D5% 1/2 NS AND MAGNESIUM SULFATE IV. PHARMACIST STATED ALL COMPATIBLE.
[2024-07-09] MEDS ORDERED: Omeprazole 40 MG **** subs to Pantoprazole 40 MG PO SCH (07:00)
--- NOTE | 2024-07-09 07:26 | NUR ---
CALL PLACED TO RU PER CONSULT OREDER. [place] TO PLACE PATIENT NPO AND MAKE SURE ECHO ORDERS IN PLACE. CALL PLACED TO RADHA Mi PER CONSULT ORDER LEFT NUMBER FOR MOLLY-SUZIE (DAYSHIFT)-TAKING ON CARE.
[2024-07-09] MEDS ORDERED: Losartan 50 MG TAB PO SCH (09:00)
[2024-07-09] MEDS ORDERED: Furosemide 20 MG TAB PO SCH (09:00)
[2024-07-09] MEDS ORDERED: Escitalopram 10 MG TAB PO SCH (09:00)
[2024-07-09] MEDS ORDERED: Magnesium Sulfate 4% 50 ML IV SCH (09:30)
--- NOTE | 2024-07-09 09:43 | NUR ---
Initial visit; Patient very pleasant and talked about her home in [place]. Not sure if she still goes there or if it was just her home growing up. She and Paving Machine Operator have their ages and mindsets in common. Patient said she would like a nice prayer; Paving Machine Operator prayed for a successful Hip Surgery, that her Surgeon and all the Staff be blessed with insight, that their skills be sharpened, and their empathy be visible as well. Paving Machine Operator also prayed for rapid and thorough healing.
[2024-07-09] MEDS ORDERED: Carboxymethylcellulose PF Ophth 0.4 ML DROPPERETTE OP PRN (09:45)
[2024-07-09] MEDS ORDERED: ALPRAZolam 0.25 MG TAB PO PRN (09:45)
--- NOTE | 2024-07-09 10:06 | NUR ---
shake out worker met with patient to discuss discharge planning. Patient lives in [place] with her , Ranjan, P# [phone]. PCP is P[facility]ha, Pharmacy is [facility]. No issues affording medications. Insurance is Medicare [employer]. DPOA-HC is Ranjan Parker. DME is wheelchair and rollator walker. Patient reports normally she has been able to be indepedent with ADLS. Patient's transports her to and from appointments. SW explained patient may need rehab after surgery, patient understood. SW explained the options of IPR and SNF and provided the Medicare.gov for SNF. Patient understood. SW will continue to follow. Discharge plan: SNF pending PT/OT evaluations
--- NOTE | 2024-07-09 13:30 | NUR ---
Discussed plan with cardiology, Dr. Esparza. Update from [facility] - will not be able to do lexiscan until tomorrow AM, plan to proceed with surgery tomorrow after cleared by cardiology. Okay to eat per cardiology and Dr. Esparza.
--- NOTE | 2024-07-09 15:12 | NUR ---
Edgar, charge nurse notified of 8 beat run of Vtach. Patient assessed, denies palpitations, chest pain, shortness of breath. Vital signs taken. DOM James notified.
[2024-07-09] MEDS ORDERED: Metoprolol Tartrate 25 MG TAB PO SCH (15:13)
[2024-07-09] MEDS ORDERED: Magnesium Oxide 400 MG TAB PO SCH (17:00)
--- NOTE | 2024-07-09 20:00 | NUR ---
PATIENT IS A&O X2, DISPLAYS OCCATIONAL FORGETFULNESS. PATIENT MADE A COUPLE COMMENTS ABOUT GETTING UP TO GO TO THE BATHROOM FORGETTING SHE HAS A FRACTURES HIP AND A SIMPSON TO DD. IV FLUIDS INFUSING VIA PUMP INTO LEFT FORARM. NPO FOR PENDING LEXISCAN IN AM. HEAD TO TOE ASSESSMENT COMPLETE. HS MEDS GIVEN. SCD'S TO BLE. PATIENT REQUESTING SOMETHING FOR PAIN BEFORE BED, GIVEN. NO OTHER NEEDS AT THIS TIME. CALL LIGHT IN REACH. BED ALARM ON.
[2024-07-10] VITALS (22 sets, daily range): BP systolic 107–182; BP diastolic 49–114; PULSE 67–143; TEMP 97.9–99
--- NOTE | 2024-07-10 04:00 | NUR ---
PATIENT HAS BEEN CONFUSED ALL NIGHT, REORIENTS EASILY BUT DOES NOT RETAIN INFORMATION. PATIENT SCREAMED HELP SEVERAL TIMES IN THE NIGHT AND HER CALL LIGHT WAS IN HER LAP. PATIENT ALSO MAKING COMMENTS ABOUT GETTING UP AND GETTING DRESSED, SHE ALSO ASKED FOR SOMETHING TO DRINK. PATIENT HAS BEEN REMINDED OF NPO STATUS MULTIPLE TIMES TONIGHT. EACH TIME SHE SAYS, OH YEAH I KNEW THAT. PATIENT HAS NOT SLEPT MUCH TONIGHT.
[2024-07-10 06:28] LABS: CALCIUM 9.7 mg/dL (8.4-10.2); CREATININE, serum 0.71 mg/dL (0.57-1.11); MAGNESIUM 1.8 mg/dL (1.6-2.6); POTASSIUM 4.4 mEq/L (3.5-4.5)
--- NOTE | 2024-07-10 06:50 | NUR ---
PATIENT WAS ABLE TO ANSWER ALL ORIENTATION QUESTIONS CORRECTLY AND ENGAGE IN APPROPRIATE CONVERSATION WITH THIS NURSE BEFORE AND DURING CONSENT FOR LEXISCAN STRESS TEST. PATIENT IS ABLE TO TEACH BACK ALL OF THE POINTS ABOUT THE STRESS TEST AND AGREES TO GET IT DONE. CONSENT ON CHART.
--- NOTE | 2024-07-10 09:12 | NUR ---
Patient awake, alert and oriented. C/O mild pain to right hip, states she feels okay when she is not moving, increased pain with movement. Aware of plan for today, to lexiscan this AM and will go to OR this afternoon after receiving clearance from cardiology. at the bedside. Bed in lowest position with call light within reach.
[2024-07-10] MEDS ORDERED: Regadenoson 0.08 MG/ML 5 ML SYRINGE IV SCH (09:26)
[2024-07-10] MEDS ORDERED: Magnesium Sulfate 2 GM/50 ML IV SOLN IV SCH (11:00)
--- NOTE | 2024-07-10 11:21 | NUR ---
Hneri complete, per Kristina, cleared by cardiology; okay to proceed with surgical plan this afternoon.
--- NOTE | 2024-07-10 14:20 | NUR ---
Patient transported down to OR
[2024-07-10] MEDS ORDERED: Lidocaine PF 2% (20 MG/ML) 5 ML VIAL ONE (14:31)
[2024-07-10] MEDS ORDERED: Tranexamic Acid 1,000 MG/10 ML VIAL ONE (14:32)
[2024-07-10] MEDS ORDERED: fentaNYL 50 MCG/ML 2 ML VIAL ONE (14:33)
[2024-07-10] MEDS ORDERED: Midazolam 2 MG/2 ML VIAL ONE (14:33)
[2024-07-10] MEDS ORDERED: HYDROmorphone 1 MG/1 ML SYRINGE [PACU/SDC ONLY] IV PRN (15:15)
[2024-07-10] MEDS ORDERED: hydrALAZINE 20 MG/ML 1 ML VIAL IV PRN (15:15)
[2024-07-10] MEDS ORDERED: Ondansetron 4 MG/2 ML VIAL IV PRN (15:15)
[2024-07-10] MEDS ORDERED: fentaNYL 50 MCG/ML 1 ML SYRINGE/VIAL [PACU/SDC ONLY] IV PRN (15:15)
[2024-07-10] MEDS ORDERED: D5 1/2 NS 1,000 ML IV SCH (16:15)
[2024-07-10] MEDS ORDERED: Magnes Hydrox (MOM) 80 MG/ML 30 ML CUP PO PRN (16:15)
[2024-07-10] MEDS ORDERED: ePHEDrine 50 MG/ML VIAL ONE (16:37)
[2024-07-10] MEDS ORDERED: LR 1,000 ML IV ONE (17:08)
[2024-07-10] MEDS ORDERED: Topical Skin Adhesive 1 EACH (1 ML) TOP ONE ×2 (17:12→17:17)
--- NOTE | 2024-07-10 18:40 | NUR ---
Pt back from PACU, pt awake, alert and oriented. Denies pain currently, resting in bed with call light within reach. Aquacell dressing to right hip, C/D/I. Postop vitals in place.
[2024-07-10] MEDS ORDERED: Sennosides/Docusate 8.6-50 MG TAB PO SCH (21:00)
[2024-07-10] MEDS ORDERED: ceFAZolin 2 G in Water For Injection,Sterile 20 ML IV SCH (22:30)
--- NOTE | 2024-07-10 23:17 | NUR ---
PT RESTING IN BED, ALERT AND ORIENTEDX4 UPON INNITAL ASSESSMENT. ASSESSED PT. NO COMPLAINTS OF PAIN AT THIS TIME. PT HAS NOT BEEN OUT OF BED YET. SIMPSON IS DRAINING CLEAR AND YELLOW. AQUACELL TO RIGHT HIP IS CLEAN DRY INTACT WITH ICE PACK ALSO ON. AT 2220 PT GOT VERY UPSET ABOUT HAVING POST OP VITALS STILL GOING AND SCD'S ON. PT SAID "WHO IS THE PRESIDENT OF THIS HOSPITAL I AM GOING TO CALL HIM AND I ALSO WANT THE DR NUMBER SO I CAN CALL HIM TOO". PT SEEMED TO BE IN A CONFUSED STATE. THIS NURSE EXPLAINED TO PATIENT WHY SHE WAS ON POST OP VITALS AND WHY SHE NEEDED TO WEAR SCD. PT REFUSED THE SCD AND TOOK OFF BP CUFF AND PULSE OX. PT STILL VERY UPSET WITH THIS NURSE. THIS NURSE STEPPED OUT OF ROOM AND PT THEN CALMED DOWN.
--- NOTE | 2024-07-10 23:50 | NUR ---
Patient requested to speak with charge nurse. This nurse went to speak with patient. Voiced that she was upset about how ofter VS were being taken after surgery and that staff did not know what they were doing. This nurse explained policy of post op VS due to risk of unstable VS after surgery. Patient voiced understanding afterwards. Patient's last VS were around 2215, and does not want VS taken at this time. Patient give PRN Acetaminophen as requested for pain to left hip. Also given Xanax as requested. Explained policy of VS every 4 hours during the night. Patient states she does not want to be woken up for VS. Stated she had a very long day, is tired and stressed, and just wants rest. This nurse asked her to call if she is awake and needs anything during the night, and agreeable to allow staff to do VS if she is awake. Told patient that staff would continue to peak in on her during the night, but would not wake her as requested. Patient very thankful and appologized for being upset. In bed with call light within reach. High fall risk precautions in place. Bed alarm on.
[2024-07-11] VITALS (11 sets, daily range): BP systolic 121–1475; BP diastolic 77–79; PULSE 80–94; TEMP 98–98.9
--- NOTE | 2024-07-11 01:46 | NUR ---
report recieved from SUZIE Estes. pt resting comfortably in bed. pt is oriented to person but has some post op confusion on where she is at and thought she was at a hotel. aqaucell dressing to right hip is cdi. pt refused right renaldo hoes and scds. pt denies pain. jiménez to dd w yellow urine output. fluids infusing into right wrist IV. pt denies needs at this time. call light in reach.
--- NOTE | 2024-07-11 05:52 | NUR ---
pt awake and more oriented this morning. she still denies pain in her right hip. fall precautions in place. call light in reach.
[2024-07-11 06:14] LABS: HEMATOCRIT 38.4 % (37.0-47.0); HEMOGLOBIN 12.9 g/dl (12.5-16.0)
--- NOTE | 2024-07-11 07:30 | NUR ---
PATIENT IS ORIENTED X2, OTHERWISE IS CONFUSED AND VERY FORGETFUL. PATIENT DOES NOT RETAIN EDUCATION AND REQUIRES A LOT OF REMINDS/CUES. PATIENT IS IMPULSIVE AT TIMES WITH A HX OF ANXIETY & FALLS AT HOME. VSS. REPORTS MINIMAL PAIN, DOESN'T USE PAIN SCALE WELL. RIGHT HIP DSG IS CD&I WITH AQUACEL AND ICE PACK INPLACE. TEDS & SCD'S TO BLE. NWM TO RLE. PT/OT CONSULTED. CALVIN TO DD. IV FLUIDS INFUSING VIA PUMP INTO RIGHT WRIST. PATIENT PULLED OUT HER LEFT IV BEFORE SHIFT CHANGE. VSS ON TELE. TELE ALSO REPLACED PATIENT WAS TAKING IT OFF WELL. REORIENTED EASILY BUT DOESN'T SEEM TO RETAIN LONG. HEAD TO TOE ASSESSMENT COMPLETE. AM MEDS GIVEN. BREAKFAST TRAY ORDERED. NOW AT BEDSIDE.
--- NOTE | 2024-07-11 14:27 | NUR ---
Follow-up visit; Patient thanked Chaplalin for looking in on her and seeing how she is doing following hip surgery. Arianna is having a really rough time but has hopes of feeling better once she can get up and begin Physical Therapy. Painting Technician offered encouragement, sharing her experience and wished her well. Painting Technician will keep her in her prayers
--- NOTE | 2024-07-11 15:35 | NUR ---
CONFIRMED WITH ORTH, PATIENT IS FULL WB TO RLE, SEE ORDERS.
--- NOTE | 2024-07-11 16:00 | NUR ---
DIESEL ENGINE TESTER BACK AT BEDSIDE TO INFORM PATIENT SHE WILL BE ACCEPTED TO [facility]. PATIENT'S NOW AT BEDSIDE AND PATIENT HAS CHANGED HER MIND AGAIN ABOUT SNF. PATIENT DOESN'T WANT TO GO AND IS ALSO WORRIED ABOUT COST. PATIENT DOESN'T RECALL CONVERSATIONS WELL AND HAS BEEN CHANGING HER MIND/ATTITUDE ABOUT REHAB OFF AND ON ALL DAY. PATIENT SEEMS TO BE MOST RESISTANT TO SNF WHEN IS HERE. EARILER TODAY WHEN ROUNDED, PATIENT WAS PLEASANT AND WILLING TO GO TO SNF, SEE PROVIDERS NOTES.
--- NOTE | 2024-07-11 16:41 | NUR ---
Management Developer met with patient and her , Ranjan to discuss recommendation for SNF. Patient was adamant that she would be returning home and doing therapy with Dr. Rush's office, as she has done in the past. SW discussed recommendation further and why home may not be a safe option for her at this point. Patient was insistent on returning home so SW also discussed option for Home Health. At one point, patient's Ranjan asked SW why SNF and HH were even recommended. SW referred to patient's therapy recommendation and the amount of assistance she currently needed to get out of bed. SW also advised patient was unable to take steps with therapy today. Patient stated she had neighbors that could assist her at home while her is at work or she could just call the fire department. Ranjan then inquired about [facility] as an option and CAREY advised they have a skilled facility and are in network with [facility]. Patient stated she does not want this and that she is in control of her lift. CAREY followed up with Hospitalist who advised he spoke with patient again and she was now agreeable to SNF. SW met with patient alone as her left for a short time. Patient stated she was willing to consider SNF options. SW advised [facility], [facility] were the in network facilities. SW also discussed the option of [facility]. Patient was adamant she did not want to make a final decision today and SW supported this, however explained the importance of sending out referrals to determine what her options would be. SW also explained that prior auth would be needed from [facility]. After further discussion, patient was agreeable to send referrals to [facility] and [facility], which CAREY did. CAREY also submitted to [facility] for authorization. CAREY contacted patient's spouse, Ranjan with an update via phone call. Ranjan expressed some confusion as patient had been adamantly against it earlier. CAREY provided update on the above conversations and Ranjan verbalized understanding. CAREY was contacted by both [facility] and [facility], both can accept pending authorization. CAREY was walking through the hallway when Ranjan approached her requesting she come into patient's room to speak with them. When SW entered patient's room, patient stated "why are you here to hound me again about money". CAREY advised Ranjan asked her to come in for an update. SW also attempted to review the prior conversations from earlier and patient stated "why do you keep descending upon us". SW advised she was there to provide an update that referrals were sent, which patient agreed to earlier. SW explained to patient she submitted to her insurance for authorization and would know more in the morning. SW had advised earlier to patient that she may have some out of pocket expenses as she did not have secondary insurance, which was frustrating to patient. SW reviewed concerns for if patient were to return home without rehab and patient seemed to be more accepting of this by the end of the conversation. Discharge Plan: SNF pending insurance auth
[2024-07-12] VITALS (8 sets, daily range): BP systolic 109–135; BP diastolic 59–79; PULSE 71–84; TEMP 97.3–99.9
--- NOTE | 2024-07-12 00:18 | NUR ---
THIS NURSE CAME ON SHIFT AND WAS AT BEDSIDE WITH . PT REQUESTED MORE ICE WATER. THIS NURSE REFILLED CUP AND ASKED IF THERE WAS ANYTHING ELSE THAT COULD BE DONE. PT HAS NO OTHER COMPLAINTS AT THIS TIME. THIS NURSE REMINDS PT THAT IF SHE NEEDS ANYTHING PRESS THE CALL LIGHT AND NURSING STAFF WILL BE IN TO HELP. PT VERBALIZES UNDERSTANDING. THIS NURSE THEN GETS A CALL FROM [facility] TO HELP HER IN THE BATHROOM. THE SMELL OF VOMITUS IS IN THE ROOM. THIS NURSE AND THE PCT CLEAN ROOM/PT. THE [facility] AND THIS NURSE THEN AMBULATE THE PT BACK TO BED. THE STATES THAT THE PT VOMITED. [facility], INFORMS ME THAT THE VOMITUS WAS PURPLE. THIS NURSE QUESTIONS THE PT, "DO YOU FEEL OKAY", "DO YOU FEEL LIKE YOU NEED TO PUKE MORE", "DO YOU FEEL LIKE YOU ARE SICK", AND FINALLY "WHAT HAVE YOU ATE". THE PT ANSWERS ALL QUESTIONS STATING SHE FEELS "FINE", SHE DOESN'T NEED TO PUKE MORE, SHE "DOES NOT FEEL SICK". THE PT THEN ADMITS THAT SHE "DRANK SOME WINE AND IT DID NOT SIT WELL WITH HER." THIS NURSE BEGINS TO QUESTION THE PT MORE. "WHEN DID YOU DRINK WINE?" "DID YOU HAVE WINE IN THE HOSPITAL?" THE PT STATES "YES I HAD WINE HERE. WHY IS THAT A PROBLEM? I AM AN ADULT." THIS NURSE EXPLAINTS TO THE PT THAT SHE IS NOT ALLOWED TO DRINK WINE IN THE HOSPITAL DUE TO THE MEDICATIONS THAT WE ARE GIVING HER CAN CAUSE AN ADVERSE REACTION. THE PT RESPONDS WITH "YEAH, RIGHT". THIS NURSE AND THE PCT BEGINS TO LOOK AROUND THE ROOM AND IN THE TRASH FOR EVIDENCE OF ANY ALCOHOL. THERE WAS NOTHING IN THE TRASH. ON THE BEDSIDE TABLE THERE WAS A EMPTY 8OZ BOTTLE WITH A VERY SMALL AMOUNT OF PURPLE LIQUID AT THE BOTTOM. THIS NURSE SMELLED THE BOTTOLE AND CONFIRMED THAT WINE WAS IN THE BOTTLE. MICAELA RN -CHARGE NURSE, INCOME TAX RETURN PREPARER, AND OBIE NOBLE WAS NOTIFIED OF EVENT. ASSESSMENT WAS COMPLETED EARLIER AND MEDICATIONS WERE ADMINISTERED PER EMAR.
--- NOTE | 2024-07-12 01:04 | NUR ---
THIS NURSE HAD A CALL FROM [facility] ABOUT 1 RUN OF VTA AT 20:50. THIS NURSE WENT IN AND CHECKED ON THE PT. PT IS OKAY. DAINA NOBLE APRN NOTIFIED.
[2024-07-12 07:07] LABS: HEMOGLOBIN 12.3 g/dl (12.5-16.0)
[2024-07-12 07:20] LABS: HEMATOCRIT 36.3 % (37.0-47.0)
--- NOTE | 2024-07-12 08:53 | NUR ---
pt is a&ox3 resting in bed. vss. pt refusing breakfast this morning. meds given and assessment complete. pt denies pain. right hip dressing is cdi. jiménez discontinued. pt wanting to get up to recliner this morning. teds to ble. right wrist INT patent. call light in reach. fall precautions in place.
[2024-07-12] MEDS ORDERED: ASPI325T6 PO (12:12)
[2024-07-12] MEDS ORDERED: ULTRAM 50MG TAB50 MG PO (12:15)
[2024-07-12] MEDS ORDERED: TOPROL XL 25MG25 MG PO (12:15)
--- NOTE | 2024-07-12 13:00 | NUR ---
INT discontinued. discharge instructions given to pt and , all questions answered. pt escorted to personal vehicle by wheelchair
--- NOTE | 2024-07-12 14:57 | NUR ---
Clinical Tech sent updates to both [facility] and [facility]. Upon review, [facility] declined the referral as patient had been drinking wine brought in for her last night and [facility] worried if she came to them, she may end up leaving AMA. Bradley at [facility] still stated they would accept. CAREY attended clinical rounds with the team and both patient and want patient to return home. Ranjan advised he has private duty caregivers scheduled for today. Patient was agreeable to Home Health. CAREY presented Medicare.gov list of agencies for review. Patient and Ranjan selected [facility]. CAREY then presented and reviewed IM form. Patient verbalized understanding and provided signature. CAREY placed form in chart and provided copy to patient. CAREY contacted [facility] at [facility] and faxed referral with discharge orders. Jay can accept patient and stated she left them a message to set up visits. Discharge Plan: Home with HH
== END 2024-07-12 13:00 | disposition home health service (06) | DRG 522 ==
LOC: COL.ER 22:49 → SURG 07-09 01:10
PROVIDERS: Internal Medicine; Nurse Practitioner Family; Orthopaedic Surgery Sports Medicine; ADMIT Hospitalist
PROC: 0SR90JA Replacement of Right Hip Joint with Synthetic Substitute, Uncemented, Open Approach (ICD-10-PCS; principal; 2024-07-10 14:30)
DX: S72.001A Fracture of unspecified part of neck of right femur, initial encounter for closed fracture (principal); E87.1 Hypo-osmolality and hyponatremia; M16.11 Unilateral primary osteoarthritis, right hip; E78.5 Hyperlipidemia, unspecified; F41.9 Anxiety disorder, unspecified; I25.2 Old myocardial infarction; Z96.653 Presence of artificial knee joint, bilateral; F10.20 Alcohol dependence, uncomplicated; W18.39XA Other fall on same level, initial encounter; Y93.01 Activity, walking, marching and hiking; Y92.013 Bedroom of single-family (private) house as the place of occurrence of the external cause; I10 Essential (primary) hypertension; E87.6 Hypokalemia; E83.42 Hypomagnesemia; Z82.49 Family history of ischemic heart disease and other diseases of the circulatory system; Z88.1 Allergy status to other antibiotic agents; Z87.891 Personal history of nicotine dependence; Z91.018 Allergy to other foods; Z88.5 Allergy status to narcotic agent; Z98.49 Cataract extraction status, unspecified eye; Z95.5 Presence of coronary angioplasty implant and graft; Z91.048 Other nonmedicinal substance allergy status; Z90.89 Acquired absence of other organs; Z86.79 Personal history of other diseases of the circulatory system
CPT/HCPCS: A6197; A9284; A9500-JZ; C1713; C1776; J0665; J0688; J0690; J2250; J2704; J2785; J3010; J3475; J3480; J7120